=== PATIENT | male | born 1975 | race Caucasian/White ===

== ENCOUNTER 2023-11-08 06:00 | Emergency (ER) | payer MEDICAID ==
[~2023-11-08] VITALS: Ht 167.6 cm; Wt 91.0 kg
[2023-11-08 06:03] VITALS: BP 200/115; O2SAT 99
[2023-11-08] MEDS ORDERED: FAMO-135 MT (06:35)
[2023-11-08] MEDS ORDERED: CEPH500C2 MT (06:35)
[2023-11-08 06:50] VITALS: PULSE 100; RESP 16; TEMP 36.94740; O2SAT 99
== END 2023-11-08 06:51 | disposition home or self-care (01) ==
LOC: ER 06:25
DX: L73.9 Follicular disorder, unspecified (principal)
CPT/HCPCS: 99283